=== PATIENT | female | born 1965 | race Two or more races ===

== ENCOUNTER → 2017-06-15 10:18 | Outpatient (CLI) | payer OTHER ==
[~2017-06-15 10:18] MED LIST: COUMADIN1 MG; COUMADIN1 MG PO; CRESTOR10 MG PO; METFORMIN HCL1000 MG; TRIGLIDE50 MG; [UNRECOGNIZED DRUG - OTHER]
== END | disposition home or self-care (01) ==
LOC: LAB 10:18
DX: E78.2 Mixed hyperlipidemia (principal); E11.65 Type 2 diabetes mellitus with hyperglycemia; E03.8 Other specified hypothyroidism; Z79.01 Long term (current) use of anticoagulants; M83.9 Adult osteomalacia, unspecified

== ENCOUNTER → 2017-08-22 | Outpatient (CLI) | payer OTHER | END | disposition home or self-care (01) | LOC: MAMO-SONO 07:41 | DX: Z12.31 Encounter for screening mammogram for malignant neoplasm of breast (principal) ==

== ENCOUNTER 2018-02-08 09:16 | Outpatient (CLI) | payer OTHER | END 2018-02-08 09:19 | disposition home or self-care (01) | LOC: LAB 09:16 | DX: E78.2 Mixed hyperlipidemia (principal); I10 Essential (primary) hypertension; E11.65 Type 2 diabetes mellitus with hyperglycemia; Z12.11 Encounter for screening for malignant neoplasm of colon; D64.89 Other specified anemias; E03.8 Other specified hypothyroidism; N95.1 Menopausal and female climacteric states; C51.9 Malignant neoplasm of vulva, unspecified; N39.0 Urinary tract infection, site not specified; E55.9 Vitamin D deficiency, unspecified; A64 Unspecified sexually transmitted disease; R19.00 Intra-abdominal and pelvic swelling, mass and lump, unspecified site; Z79.01 Long term (current) use of anticoagulants ==

== ENCOUNTER 2018-06-21 08:24 | Outpatient (CLI) | payer OTHER | END 2018-06-21 08:39 | disposition home or self-care (01) | LOC: LAB 08:24 | DX: I10 Essential (primary) hypertension (principal); E78.2 Mixed hyperlipidemia; E11.65 Type 2 diabetes mellitus with hyperglycemia ==

== ENCOUNTER → 2018-10-07 | Outpatient (CLI) | payer OTHER | END | disposition home or self-care (01) | LOC: MAMO-SONO 10-06 07:45 | DX: N60.11 Diffuse cystic mastopathy of right breast (principal); N60.12 Diffuse cystic mastopathy of left breast; Z12.31 Encounter for screening mammogram for malignant neoplasm of breast ==

== ENCOUNTER 2019-01-03 10:11 | Outpatient (CLI) | payer OTHER | END 2019-01-03 10:28 | disposition home or self-care (01) | LOC: LAB 10:11 | DX: I80.209 Phlebitis and thrombophlebitis of unspecified deep vessels of unspecified lower extremity (principal); E11.65 Type 2 diabetes mellitus with hyperglycemia; M83.8 Other adult osteomalacia; E03.8 Other specified hypothyroidism; I10 Essential (primary) hypertension; E78.2 Mixed hyperlipidemia ==

== ENCOUNTER 2019-04-17 09:29 | Outpatient (CLI) | payer OTHER | END 2019-04-17 09:39 | disposition home or self-care (01) | LOC: LAB 09:29 | DX: R05 Cough (principal); J11.1 Influenza due to unidentified influenza virus with other respiratory manifestations ==

== ENCOUNTER 2019-07-07 08:27 | Outpatient (CLI) | payer OTHER | END 2019-07-07 08:52 | disposition home or self-care (01) | LOC: LAB 08:27 | DX: A49.3 Mycoplasma infection, unspecified site (principal) ==

== ENCOUNTER 2019-10-12 08:26 | Outpatient (CLI) | payer OTHER | END 2019-10-12 08:45 | disposition home or self-care (01) | LOC: MAMO-SONO 08:26 | PROVIDERS: ATTEND Specialist | DX: Z12.31 Encounter for screening mammogram for malignant neoplasm of breast (principal); Z87.898 Personal history of other specified conditions; N60.11 Diffuse cystic mastopathy of right breast; N60.12 Diffuse cystic mastopathy of left breast ==

== ENCOUNTER 2019-11-03 07:46 | Outpatient (CLI) | payer OTHER | END 2019-11-03 08:05 | disposition home or self-care (01) | LOC: LAB 07:46 | PROVIDERS: ATTEND Internal Medicine Hematology & Oncology | DX: D50.8 Other iron deficiency anemias (principal); E11.65 Type 2 diabetes mellitus with hyperglycemia; E72.12 Methylenetetrahydrofolate reductase deficiency; D68.52 Prothrombin gene mutation; Z79.01 Long term (current) use of anticoagulants; I10 Essential (primary) hypertension; E78.2 Mixed hyperlipidemia ==

== ENCOUNTER 2020-02-22 09:05 | Outpatient (CLI) | payer OTHER | END 2020-02-22 09:13 | disposition home or self-care (01) | LOC: LAB 09:05 | PROVIDERS: ATTEND Internal Medicine Endocrinology, Diabetes & Metabolism | DX: E03.8 Other specified hypothyroidism (principal); I10 Essential (primary) hypertension; E11.65 Type 2 diabetes mellitus with hyperglycemia; E78.1 Pure hyperglyceridemia; M83.8 Other adult osteomalacia ==

== ENCOUNTER → 2020-06-27 10:42 | Outpatient (CLI) | payer OTHER | END | disposition home or self-care (01) | LOC: LAB 10:42 | PROVIDERS: ATTEND Internal Medicine Cardiovascular Disease | DX: I10 Essential (primary) hypertension (principal); E11.9 Type 2 diabetes mellitus without complications; E03.8 Other specified hypothyroidism; E78.2 Mixed hyperlipidemia; E55.9 Vitamin D deficiency, unspecified ==

== ENCOUNTER 2020-07-11 09:27 | Outpatient (CLI) | payer OTHER | END 2020-07-11 09:29 | disposition home or self-care (01) | LOC: LAB 09:27 | PROVIDERS: ATTEND Internal Medicine Cardiovascular Disease | DX: N39.0 Urinary tract infection, site not specified (principal); Z79.01 Long term (current) use of anticoagulants ==

== ENCOUNTER 2020-10-24 07:32 | Outpatient (CLI) | payer OTHER | END 2020-10-24 07:47 | disposition home or self-care (01) | LOC: RAD 07:32 → MAMO-SONO 07:45 → RAD 07:47 | PROVIDERS: ATTEND Specialist | DX: Z12.31 Encounter for screening mammogram for malignant neoplasm of breast (principal); N60.11 Diffuse cystic mastopathy of right breast; N60.12 Diffuse cystic mastopathy of left breast ==

== ENCOUNTER 2021-09-09 09:38 | Outpatient (CLI) | payer OTHER | END 2021-09-09 10:02 | disposition home or self-care (01) | LOC: LAB 09:38 | PROVIDERS: ATTEND Internal Medicine Cardiovascular Disease | DX: D64.9 Anemia, unspecified (principal); E11.65 Type 2 diabetes mellitus with hyperglycemia; I77.6 Arteritis, unspecified; E72.12 Methylenetetrahydrofolate reductase deficiency; D68.51 Activated protein C resistance; Z79.01 Long term (current) use of anticoagulants; E78.2 Mixed hyperlipidemia; I10 Essential (primary) hypertension; E11.9 Type 2 diabetes mellitus without complications; E03.9 Hypothyroidism, unspecified; Z86.718 Personal history of other venous thrombosis and embolism; I87.2 Venous insufficiency (chronic) (peripheral) ==

== ENCOUNTER 2021-10-31 08:00 | Outpatient (CLI) | payer OTHER | END 2021-10-31 08:01 | disposition home or self-care (01) | LOC: MAMO-SONO 08:00 | PROVIDERS: ATTEND Specialist | DX: N60.11 Diffuse cystic mastopathy of right breast (principal); N60.12 Diffuse cystic mastopathy of left breast ==

== ENCOUNTER → 2022-08-18 09:25 | Outpatient (CLI) | payer OTHER | END | disposition home or self-care (01) | LOC: LAB 09:25 | PROVIDERS: ATTEND Internal Medicine | DX: E11.65 Type 2 diabetes mellitus with hyperglycemia (principal); E78.5 Hyperlipidemia, unspecified; I10 Essential (primary) hypertension ==

== ENCOUNTER 2022-12-21 07:51 | Outpatient (CLI) | payer OTHER | END 2022-12-21 07:53 | disposition home or self-care (01) | LOC: NUCLEAR 07:51 | PROVIDERS: ATTEND Physical Medicine & Rehabilitation | DX: I83.813 Varicose veins of bilateral lower extremities with pain (principal) ==

== ENCOUNTER 2023-03-01 07:01 | Outpatient (CLI) | payer OTHER ==
[2023-03-01 08:19] LABS: PH,URINE 5.5 (5.0-8.0); URINE APPEARANCE Clear; URINE BILIRRUBIN Negative (NEGATIVE); URINE BLOOD Negative; URINE COLOR Yellow; URINE LEUKOCYTE Negative; URINE NITRATE Negative; URINE PROTEIN Negative (NEGATIVE); URINE UROBILINOGEN 0.2 E.U./dl
[2023-03-01 08:20] LABS: URINE BACTERIA 289.6 uL (0.0-1933); URINE EPITHELIAL CELLS 4.4 uL (0.0-38.8); URINE WBC 32.5 uL (0.0-23.2)
[2023-03-01 08:29] LABS: URINE GLUCOSE >=1000 MG/DL (NEGATIVE)
== END 2023-03-01 07:02 | disposition home or self-care (01) ==
LOC: LAB 07:01
PROVIDERS: ATTEND General Practice
DX: M77.30 Calcaneal spur, unspecified foot (principal)

== ENCOUNTER 2023-05-27 09:20 | Outpatient (CLI) | payer OTHER ==
[2023-05-27 10:31] LABS: PH,URINE 5.5 (5.0-8.0); URINE APPEARANCE Cloudy; URINE BILIRRUBIN Negative (NEGATIVE); URINE BLOOD Negative; URINE COLOR Yellow; URINE LEUKOCYTE Small; URINE NITRATE Negative; URINE PROTEIN Trace (NEGATIVE); URINE UROBILINOGEN 0.2 E.U./dl
[2023-05-27 10:31] LABS: HEMATOCRIT 35.6 % (36.0-45.00); HEMOGLOBIN 11.6 g/dL (12.0-15.00); MEAN CELL VOLUME 71.4 fL (80.00-100.00); MEAN CORPUSCULAR HEMOGLOBIN 23.3 pg (27.00-32.0); MEAN CORPUSCULAR HGB CONC 32.7 g/dl (32.0-36.0); PLATELET COUNT 272 K/uL (150-450); RED BLOOD COUNT 4.99 M/uL (4.00-6.00); RED CELL DISTRIBUTION WIDTH 18.7 % (11.5-14.5)
[2023-05-27 10:33] LABS: URINE BACTERIA 8250.1 uL (0.0-1933); URINE EPITHELIAL CELLS 58.7 uL (0.0-38.8); URINE WBC 477.2 uL (0.0-23.2)
[2023-05-27 11:03] LABS: URINE GLUCOSE >=1000 MG/DL (NEGATIVE)
[2023-05-27 11:23] LABS: ALBUMIN 4.2 gm/dL (3.4-5.0); BILIRUBIN TOTAL 0.48 mg/dL (0.3-1.2); CALCIUM 9.5 mg/dL (8.5-10.1); CHOL HDL RATIO 3.5 (0-5.0); CREATININE SERUM 0.7 mg/dL (0.55-1.02); GFR 86.87; GLOBULINA 3.6 G/DL (2.4-3.5); POTASSIUM 4.04 mEq/L (3.5-5.1); T4 TOTAL 11.24 UG/DL (4.8-13.9); TOTAL PROTEIN 7.8 gm/dL (6.4-8.2); TSH 0.826 uIU/mL (0.358-3.74)
[2023-05-27 11:42] LABS: T3 TOTAL 1.04 ng/ml (0.846-2.02); VITAMIN D3 25 HYDROXY 38.75 ng/ml (30-120)
== END 2023-05-27 09:21 | disposition home or self-care (01) ==
LOC: LAB 09:20
PROVIDERS: ATTEND Internal Medicine Cardiovascular Disease
DX: I10 Essential (primary) hypertension (principal); E11.9 Type 2 diabetes mellitus without complications; E03.9 Hypothyroidism, unspecified; E55.9 Vitamin D deficiency, unspecified; E72.12 Methylenetetrahydrofolate reductase deficiency

== ENCOUNTER 2023-07-06 10:24 | Outpatient (CLI) | payer OTHER ==
[2023-07-06 11:19] LABS: HEMATOCRIT 36.5 % (36.0-45.00); MEAN CELL VOLUME 71.5 fL (80.00-100.00); MEAN CORPUSCULAR HEMOGLOBIN 23.5 pg (27.00-32.0); MEAN CORPUSCULAR HGB CONC 32.9 g/dl (32.0-36.0); PLATELET COUNT 285 K/uL (150-450); RED CELL DISTRIBUTION WIDTH 17.9 % (11.5-14.5)
[2023-07-06 11:49] LABS: URINE APPEARANCE Cloudy; URINE BILIRRUBIN Negative (NEGATIVE); URINE BLOOD Negative; URINE COLOR Yellow; URINE LEUKOCYTE Moderate; URINE NITRATE Positive; URINE PROTEIN Negative (NEGATIVE); URINE UROBILINOGEN 0.2 E.U./dl
[2023-07-06 11:50] LABS: URINE GLUCOSE >=1000 MG/DL (NEGATIVE)
[2023-07-06 12:14] LABS: ALBUMIN 4.4 gm/dL (3.4-5.0); BILIRUBIN TOTAL 0.66 mg/dL (0.3-1.2); CALCIUM 10.3 mg/dL (8.5-10.1); CHOL HDL RATIO 3.2 (0-5.0); CREATININE SERUM 0.73 mg/dL (0.55-1.02); GFR 82.77; GLOBULINA 2.9 G/DL (2.4-3.5); POTASSIUM 4.2 mEq/L (3.5-5.1); TOTAL PROTEIN 7.3 gm/dL (6.4-8.2); TSH 0.914 uIU/mL (0.358-3.74)
== END 2023-07-06 10:34 | disposition home or self-care (01) ==
LOC: LAB 10:24
PROVIDERS: ATTEND Internal Medicine
DX: E11.65 Type 2 diabetes mellitus with hyperglycemia (principal); E78.5 Hyperlipidemia, unspecified; I10 Essential (primary) hypertension

== ENCOUNTER 2023-11-27 07:53 | Outpatient (CLI) | payer OTHER | END 2023-11-27 08:18 | disposition home or self-care (01) | LOC: MAMO-SONO 07:53 | PROVIDERS: ATTEND Specialist | DX: N60.11 Diffuse cystic mastopathy of right breast (principal); N60.12 Diffuse cystic mastopathy of left breast ==

== ENCOUNTER 2024-02-20 10:28 | Outpatient (CLI) | payer OTHER | END 2024-02-20 10:36 | disposition home or self-care (01) | LOC: RAD 10:28 | DX: M79.641 Pain in right hand (principal); R20.2 Paresthesia of skin ==

== ENCOUNTER 2025-01-28 08:30 | Outpatient (CLI) | payer OTHER | END 2025-01-28 08:37 | disposition home or self-care (01) | LOC: MAMO-SONO 08:30 | PROVIDERS: ATTEND Specialist | DX: N60.11 Diffuse cystic mastopathy of right breast (principal); N60.12 Diffuse cystic mastopathy of left breast; R92.8 Other abnormal and inconclusive findings on diagnostic imaging of breast; Z12.31 Encounter for screening mammogram for malignant neoplasm of breast ==

== ENCOUNTER 2025-04-06 08:55 | Outpatient (CLI) | payer OTHER ==
[2025-04-06 09:48] LABS: BASO % 0.8 % (0.1-1.2); EOS # 0.19 (0.04-0.54); EOS % 3.1 % (0.7-7.0); LYMPH # 2.78 (1.18-3.74); LYMPH % 45.4 % (19.3-53.1); MEAN PLATELET VOLUME 10.30 fl (9.4-12.4); MONO # 0.53 (0.24-0.82); MONO % 8.7 % (4.7-12.5); NEUT # 2.56 (1.56-6.13); NEUT % 41.8 % (34.0-71.1); RED CELL DISTRIBUTION WIDTH 17.0 % (11.6-14.4)
[2025-04-06 10:41] LABS: ALT/SGPT 28.0 U/L (12-78); AST/SGOT 18.0 U/L (15-37); BILIRUBIN TOTAL 0.54 mg/dL (0.3-1.2); BUN CREA RATIO 35.0 (7.0-25.0); CHOL HDL RATIO 4.7 (0-5.0); CREATININE SERUM 0.65 mg/dL (0.55-1.02); GFR 93.95; GLOBULINA 3.6 G/DL (2.4-3.5); GLUCOSE FASTING 76.0 mg/dL (65-100); HDL 44.0 mg/dl (40-60); LDL 132.0 mg/dl (0-130); OSMOLALITY SERUM 286.0 MOSM/KG (275-295); TSH 1.15 uIU/mL (0.358-3.74); VLDL 29.0 (0-39)
== END 2025-04-06 09:07 | disposition home or self-care (01) ==
LOC: LAB 08:55
PROVIDERS: ATTEND Internal Medicine
DX: E11.65 Type 2 diabetes mellitus with hyperglycemia (principal); E03.8 Other specified hypothyroidism; E78.5 Hyperlipidemia, unspecified; I10 Essential (primary) hypertension